=== PATIENT | male | born 1965 | race American Indian/Alaskan Native ===

== ENCOUNTER 2017-12-10 12:00 | Emergency (ER) | payer MEDICARE ==
[2017-12-10 12:11] VITALS: BP 106/69
[2017-12-10] MEDS ORDERED: DECADRON IM STA (13:40)
--- NOTE | 2017-12-10 13:41 | Emergency Department Report ---
Minor Respiratory - HPI Chief Complaint: Upper Respiratory Infection Stated Complaint: FEVER/CHILLS/HEADACHE Time Seen by Provider: 12/10/17 13:31 Duration: 5 weeks Pain Location: Other (facial pain and headache) Severity: moderate (aching and pressure) Minor Respiratory: Yes Rhinorrhea (nasal congestion and drainage), Yes Able to Tolerate Fluids, Yes Cough (dry cough), Yes Fever (chills), No Sore Throat, No Ear Pain, No Sick Contacts, No Hemoptysis, No Chest Pain, No Shortness of Breath Other History: This is a 52-year-old patient who reported that he did have a nasal congestion drainage and dry cough with postnasal drainage since Labor Day and has been using [id number] cough and cold medication and it is not getting better. He denies any chest pain or shortness of breath. Denies any nausea or vomiting. Patient states reports that he feels like he has a fever and he is having chills but he actually did not take his temperature. He is having in headaches and facial pain that started 3 days ago as 5 out of 10 achy and pressure. Denies any sore throat or ear pain but reports clogged ear sensation. Patient is HIV positive positive he does not report any problems with his HIV. He said he has infectious disease doctor and is viral load is undetectable. ED Review of Systems ROS: Stated complaint: FEVER/CHILLS/HEADACHE Other details as noted in HPI Constitutional: fever Eyes: denies: eye pain, eye discharge ENT: congestion. denies: ear pain, throat pain Respiratory: cough. denies: shortness of breath, SOB with exertion, SOB at rest , stridor, wheezing Cardiovascular: denies: chest pain, palpitations, edema, syncope Gastrointestinal: denies: nausea, vomiting Musculoskeletal: myalgia. denies: back pain, joint swelling, arthralgia Skin: denies: rash, lesions Neurological: headache. denies: weakness, numbness, paresthesias, confusion, abnormal gait ED Past Medical Hx - Past Medical History Previous Medical History?: Yes Hx HIV: Yes - Surgical History Past Surgical History?: No - Family History Family history: hypertension - Social History Smoking Status: Current Every Day Smoker Substance Use Type: Alcohol - Medications Home Medications: Home Medications Medication Instructions Recorded Confirmed Last Taken Type Cetirizine HCl [ZyrTEC] 10 mg PO QAM 14 Days #14 capsule 12/10/17 Unknown Rx Fluticasone [Flonase] 1 spray NS QDAY 14 Days #14 bottle 12/10/17 Unknown Rx Ibuprofen [Motrin] 600 mg PO Q8H PRN #12 tablet 12/10/17 Unknown Rx predniSONE [Deltasone] 50 mg PO QDAY 3 Days #3 tab 12/10/17 Unknown Rx Minor Respiratory Exam - Exam General: Vital signs noted. No distress. Alert and acting appropriately. This is a 52-year-old male well-nourished well-developed in no acute distress. He is nontoxic in appearance HEENT: Yes Moist Mucous Membranes (uvula midline and oral airways patent), Yes Rhinorrhea (congested, erythema with clear drainage), Yes Frontal Tenderness, Yes Maxillary Tenderness, No Pharyngeal Erythema, No Pharyngeal Exudates, No Conjuctival Injection Ear: Neither TM Bulge (congested), Neither TM Erythema, Neither EAC Pain, Neither EAC Discharge Neck: Yes Supple (full range of motion, no C-spine tenderness.), No Adenopathy Lungs: Yes Good Air Exchange (clear to auscultation bilaterally), Yes Cough ( dry cough), No Wheezes, No Ronchi, No Stridor, No Labored Respirations, No Retractions, No Use of Accessory Muscles, No Other Abnormal Lung Sounds Heart: Yes Regular (regular rate and rhythm), No Murmur Abdomen: Yes Normal Bowel Sounds (normal bowel sounds in all quadrants), No Tenderness (nontender palpate in all quadrants), No Peritoneal Signs Skin: No Rash, No Edema Neurologic: Alert and oriented, no deficits. Alert and oriented 3, normal gait Musculoskeletal: Unremarkable. Extremity: No clubbing, cyanosis or edema +2 pulses all extremities and no neurovascular compromise ED Course Vital Signs 12/10/17 12:09 Temperature 98.3 F Pulse Rate 92 H Respiratory 18 Rate Blood Pressure 106/69 O2 Sat by Pulse 98 Oximetry - Reevaluation(s) Reevaluation #1: 12/10/17 13:44 given Decadron 10 enzymes I am an emergency room to start acute sinusitis treatment ED Medical Decision Making - Medical Decision Making This is a 52-year-old male well-nourished well-developed in no acute distress. Patient is HIV positive and followed by infectious disease and said that his viral load is undetectable. She is here complaining of nasal congestion without any chest pain or shortness of breath. Assessment/plan 1: Acute sinusitis-Decadron 10 mg IM given in emergency room and patient will be discharged home on Augmentin, prednisone 3 days, Zyrtec and Flonase. 2: Headache and myalgia-patient will be discharged home on Motrin when necessary. This patient is diagnosis and treatment plan and he voiced understanding. I told him he will need to call his infectious disease doctor to schedule an appointment for follow-up visit in 2 days. Patient vital signs stable he is afebrile and he is in no acute distress and nontoxic in appearance. Patient discharged home with prescription for Augmentin, prednisone, Zyrtec and Flonase. Critical care attestation.: If time is entered above; I have spent that time in minutes in the direct care of this critically ill patient, excluding procedure time. ED Disposition Clinical Impression: Body aches Sinusitis, acute Qualifiers: Sinusitis location: unspecified location Recurrence: not specified as recurrent Qualified Code(s): J01.90 - Acute sinusitis, unspecified Headache Qualifiers: Headache type: unspecified Headache chronicity pattern: episodic headache Intractability: not intractable Qualified Code(s): R51 - Headache Disposition: DC- TO HOME OR SELFCARE Is pt being admited?: No Does the pt Need Aspirin: No Condition: Stable Instructions: Sinusitis (ED), Acute Headache (ED) Additional Instructions: Please take antibiotic as prescribed Follow-up with primary care physician and infectious disease doctor in 2 days If your condition worsens to include difficulty breathing, swallowing, chest pain, nausea and vomiting and fever, please return to the emergency room ROB. Take prednisone, Zyrtec and Flonase to relieve congestion Increasing fluid intake Use nasal saline wash to flush and nostrils. Prescriptions: Cetirizine HCl [ZyrTEC] 10 mg PO QAM 14 Days #14 capsule Fluticasone [Flonase] 1 spray NS QDAY 14 Days #14 bottle Ibuprofen [Motrin] 600 mg PO Q8H PRN #12 tablet PRN Reason: Pain predniSONE [Deltasone] 50 mg PO QDAY 3 Days #3 tab Referrals: PRIMARY CARE, [Primary Care Provider] - 12/12/17 [facility] [Outside] - 12/12/17 your, infectious disease doctor [Other] - 12/12/17 Forms: Work/School Release Form(ED), Accompanied Note
== END 2017-12-10 13:59 | disposition home or self-care (01) ==
LOC: ED 12:00
DX: J01.90 Acute sinusitis, unspecified (principal); F17.200 Nicotine dependence, unspecified, uncomplicated
CPT/HCPCS: 96372; 99282; J1100